=== PATIENT | female | born 1970 | race Caucasian/White ===

== ENCOUNTER 2021-10-13 12:56 | Inpatient (IN) ==
[2021-10-13] MEDS ORDERED: Furosemide 40 MG/4 ML VIAL IVP ONE (13:48)
[2021-10-13] MEDS ORDERED: Ipratropium/Albuterol Neb 3 ML IH ONE (14:02)
[2021-10-13] MEDS ORDERED: methylPREDNISolone 125 MG/2 ML VIAL IVP ONE (14:02)
[2021-10-13 14:38] LABS: Basophils % 0.5 %; Eosinophils # 0.1 K/mcL (0.0-0.6); Eosinophils % 1.4 %; Hematocrit 39.6 % (35.3-44.9); Hemoglobin 12.2 g/dL (11.5-15.4); Immature Granulocytes % 0.6 % (0-4); Lymphocytes # 1.4 K/mcL (0.6-4.6); Lymphocytes % 16.2 %; Mean Corpuscular HGB Conc 30.8 g/dL (31.6-35.5); Mean Corpuscular Hemoglobin 26.4 pg (28.0-33.3); Mean Corpuscular Volume 85.7 fL (83.0-100.0); Mean Platelet Volume 8.9 fL (9.4-12.4); Monocytes # 0.5 K/mcL (0.0-1.3); Monocytes % 5.8 %; Neutrophils # 6.6 K/mcL (1.6-8.9); Nucleated Red Blood Cells 0.2 /100 WBC (0); Platelet Count 361 K/mcL (140-400); Red Blood Count 4.62 M/mcL (3.82-4.97); Red Cell Distribution Width 16.6 % (11.5-14.5); Segmented Neutrophils % 75.5 %; White Blood Count 8.7 K/mcL (4.3-11.1)
[2021-10-13 14:54] LABS: BUN/Creatinine Ratio 10 (6-26); Blood Urea Nitrogen 5 mg/dL (6-20); Calcium 9.2 mg/dL (8.6-10.3); Carbon Dioxide 28 mEq/L (23-29); Chloride 102 mEq/L (98-107); Glucose 91 mg/dL (70-105); Osmolality,Calculated 285 (280-300); Potassium 3.7 mEq/L (3.5-5.1); Sodium 139 mEq/L (136-145); eGFR For African Americans > 60 (> 60); eGFR For Non-African Americans > 60 (> 60)
[2021-10-13 14:56] LABS: Troponin I < 0.03 ng/mL (< 0.04)
[2021-10-13] MEDS ORDERED: levoFLOXacin 750 MG/150 ML 750 MG/150 ML BAG IVPB ONE (15:30)
[2021-10-13] MEDS ORDERED: Naloxone 0.4 MG/ML INJ IVP PRN (16:11)
[2021-10-13] MEDS ORDERED: Perflutren Lipid Microsphere 1.3 ML in 0.9 % Sodium Chloride 8.7 ML IVP PRN (16:16)
[2021-10-13] MEDS ORDERED: Acetaminophen 325 MG TABLET PO PRN (17:04)
[2021-10-13 17:23] LABS: Influenza A PCR Negative (Negative); Influenza B PCR Negative (Negative); Resp. Syncytial Virus PCR Negative (Negative)
[2021-10-13 17:37] LABS: SARS-CoV-2 by PCR (In House) Negative (Negative)
[2021-10-13] MEDS: Nicotine 21 MG PATCH.TD24 TD SCH (18:12)
[2021-10-13] MEDS: Ipratropium/Albuterol Neb 3 ML IH SCH (20:50)
[2021-10-13] MEDS: Budesonide/Formoterol 160/4.5 1 PUFF INH IH SCH (20:50)
[2021-10-13] MEDS: Gabapentin 300 MG CAPSULE PO SCH (21:05)
[2021-10-13] MEDS: *HR* Heparin 5,000 UNIT/ML VIAL SQ SCH (21:05)
[2021-10-14] MEDS: Ipratropium/Albuterol Neb 3 ML IH SCH ×4 (04:17→20:16)
[2021-10-14] MEDS: *HR* Heparin 5,000 UNIT/ML VIAL SQ SCH ×3 (05:42→21:10)
[2021-10-14 07:31] LABS: Basophils % 0.2 %; Hematocrit 36.3 % (35.3-44.9); Hemoglobin 11.3 g/dL (11.5-15.4); Immature Granulocytes % 0.8 % (0-4); Lymphocytes # 1.3 K/mcL (0.6-4.6); Lymphocytes % 19.4 %; Mean Corpuscular HGB Conc 31.1 g/dL (31.6-35.5); Mean Corpuscular Hemoglobin 26.7 pg (28.0-33.3); Mean Corpuscular Volume 85.8 fL (83.0-100.0); Mean Platelet Volume 8.9 fL (9.4-12.4); Monocytes # 0.2 K/mcL (0.0-1.3); Monocytes % 3.7 %; Nucleated Red Blood Cells 0.3 /100 WBC (0); Platelet Count 368 K/mcL (140-400); Red Blood Count 4.23 M/mcL (3.82-4.97); Red Cell Distribution Width 16.4 % (11.5-14.5); Segmented Neutrophils % 75.9 %; White Blood Count 6.6 K/mcL (4.3-11.1)
[2021-10-14 07:51] LABS: BUN/Creatinine Ratio 20 (6-26); Blood Urea Nitrogen 11 mg/dL (6-20); Calcium 9.4 mg/dL (8.6-10.3); Carbon Dioxide 28 mEq/L (23-29); Chloride 102 mEq/L (98-107); Glucose 110 mg/dL (70-105); Magnesium 2.1 mg/dL (1.6-2.6); Osmolality,Calculated 286 (280-300); Sodium 138 mEq/L (136-145); eGFR For African Americans > 60 (> 60); eGFR For Non-African Americans > 60 (> 60)
[2021-10-14] MEDS: Budesonide/Formoterol 160/4.5 1 PUFF INH IH SCH ×2 (08:00→20:18)
[2021-10-14] MEDS: Gabapentin 300 MG CAPSULE PO SCH ×3 (09:13→21:10)
[2021-10-14] MEDS: Furosemide 20 MG/2 ML VIAL IVP SCH ×2 (09:13→20:35)
[2021-10-14] MEDS: levoFLOXacin 750 MG/150 ML 750 MG/150 ML BAG IVPB SCH (09:13)
[2021-10-14] MEDS: Nicotine 21 MG PATCH.TD24 TD SCH (09:13)
[2021-10-14 15:37] LABS: Bilirubin,Urine Negative (Negative); Blood,Urine Negative (Negative); Clarity,Urine Clear (Clear); Color,Urine Light-Yellow (Yellow); Glucose,Urine (UA) Normal (Normal); Ketones,Urine Negative (Negative); Leukocyte Esterase,Urine Negative (Negative); Nitrite,Urine Negative (Negative); PH,Urine 6.5 pH Units (5.0-8.0); Protein,Urine Negative (Neg-Trace); Specific Gravity,Urine 1.012 (1.010-1.025); Urobilinogen,Urine Normal (Normal)
[2021-10-14] MEDS: Ondansetron 4 MG/2 ML VIAL IVP PRN (21:15)
[2021-10-15] MEDS: Ipratropium/Albuterol Neb 3 ML IH SCH ×4 (03:48→20:20)
[2021-10-15] MEDS: *HR* Heparin 5,000 UNIT/ML VIAL SQ SCH ×3 (06:11→20:55)
[2021-10-15] MEDS: Budesonide/Formoterol 160/4.5 1 PUFF INH IH SCH ×2 (08:03→20:20)
[2021-10-15] MEDS: Gabapentin 300 MG CAPSULE PO SCH ×3 (08:57→20:54)
[2021-10-15] MEDS: Furosemide 20 MG/2 ML VIAL IVP SCH ×2 (08:57→20:55)
[2021-10-15] MEDS: levoFLOXacin 750 MG/150 ML 750 MG/150 ML BAG IVPB SCH (08:57)
[2021-10-15] MEDS: Nicotine 21 MG PATCH.TD24 TD SCH (10:30)
[2021-10-15 10:44] LABS: Basophils % 0.3 %; Eosinophils % 0.4 %; Immature Granulocytes % 0.8 % (0-4); Lymphocytes # 2.9 K/mcL (0.6-4.6); Lymphocytes % 28.5 %; Mean Corpuscular HGB Conc 30.6 g/dL (31.6-35.5); Mean Corpuscular Volume 88.2 fL (83.0-100.0); Mean Platelet Volume 9.2 fL (9.4-12.4); Monocytes # 0.6 K/mcL (0.0-1.3); Monocytes % 5.9 %; Neutrophils # 6.5 K/mcL (1.6-8.9); Platelet Count 362 K/mcL (140-400); Red Blood Count 4.08 M/mcL (3.82-4.97); Red Cell Distribution Width 16.9 % (11.5-14.5); Segmented Neutrophils % 64.1 %
[2021-10-15 10:49] LABS: White Blood Count 10.1 K/mcL (4.3-11.1)
[2021-10-15 11:06] LABS: BUN/Creatinine Ratio 26 (6-26); Blood Urea Nitrogen 20 mg/dL (6-20); Carbon Dioxide 31 mEq/L (23-29); Chloride 101 mEq/L (98-107); Glucose 130 mg/dL (70-105); Osmolality,Calculated 292 (280-300); Potassium 3.3 mEq/L (3.5-5.1); Sodium 139 mEq/L (136-145); eGFR For African Americans > 60 (> 60); eGFR For Non-African Americans > 60 (> 60)
[2021-10-15] MEDS: Ondansetron 4 MG/2 ML VIAL IVP PRN (20:55)
[2021-10-15] MEDS: *HR* Buprenorphine HCl 8 MG TAB.SUBL SL SCH (20:55)
[2021-10-15] MEDS ORDERED: NON-FORMULARY MEDICATION 1 EACH EACH (Buprenorphine Hcl/Naloxone Hcl [Zubsolv 5.7-1.4 Mg T SL SCH (21:00)
[2021-10-16] MEDS: Ipratropium/Albuterol Neb 3 ML IH SCH ×3 (03:24→15:07)
[2021-10-16 05:03] LABS: BUN/Creatinine Ratio 27 (6-26); Blood Urea Nitrogen 24 mg/dL (6-20); Calcium 9.5 mg/dL (8.6-10.3); Carbon Dioxide 31 mEq/L (23-29); Chloride 100 mEq/L (98-107); Glucose 138 mg/dL (70-105); Osmolality,Calculated 292 (280-300); Potassium 4.3 mEq/L (3.5-5.1); Sodium 138 mEq/L (136-145); eGFR For African Americans > 60 (> 60); eGFR For Non-African Americans > 60 (> 60)
[2021-10-16] MEDS: *HR* Heparin 5,000 UNIT/ML VIAL SQ SCH (05:46)
[2021-10-16] MEDS: levoFLOXacin 750 MG/150 ML 750 MG/150 ML BAG IVPB SCH (08:40)
[2021-10-16] MEDS: Nicotine 21 MG PATCH.TD24 TD SCH (08:42)
[2021-10-16] MEDS: Furosemide 20 MG/2 ML VIAL IVP SCH (08:43)
[2021-10-16] MEDS: Gabapentin 300 MG CAPSULE PO SCH (08:47)
[2021-10-16] MEDS: *HR* Buprenorphine HCl 8 MG TAB.SUBL SL SCH (08:47)
[2021-10-16] MEDS ORDERED: Loratadine 10 MG TABLET PO SCH (09:00)
[2021-10-16] MEDS ORDERED: FLUoxetine 20 MG CAPSULE PO SCH (09:00)
[2021-10-16] MEDS ORDERED: Aspirin Enteric Coated 81 MG Tablet PO SCH (09:00)
[2021-10-16] MEDS: Budesonide/Formoterol 160/4.5 1 PUFF INH IH SCH (10:33)
[2021-10-16 10:59] VITALS: BP 113/66; PULSE 100; TEMP 98.2; O2SAT 91
== END 2021-10-16 15:35 | disposition home or self-care (01) | DRG 871 ==
LOC: EMEROOARM 12:56 → 3ANU 16:42 → SUATTDRO 16:42 → 3ANU 17:32
PROVIDERS: ADMIT Student in an Organized Health Care Education/Training Program; ATTEND Family Medicine